=== PATIENT | male | born 1995 | race Two or more races ===

== ENCOUNTER 2017-02-09 22:38 | Emergency (ER) | payer MEDICAID ==
[~2017-02-09] VITALS: Ht 177.8 cm; Wt 99.8 kg
[2017-02-09 23:27] VITALS: BP 139/88
[2017-02-10] MEDS ORDERED: BACITRACIN TOP OINT 1 UD PKG TOP ONE (00:30)
== END 2017-02-10 00:30 | disposition home or self-care (01) ==
LOC: ER 22:38
DX: S61.412A Laceration without foreign body of left hand, initial encounter (principal); W22.8XXA Striking against or struck by other objects, initial encounter; Y93.89 Activity, other specified; Y99.8 Other external cause status; Y92.89 Other specified places as the place of occurrence of the external cause
CPT/HCPCS: 12001